=== PATIENT | male | born 2005 | race African-American/Black ===

== ENCOUNTER 2025-02-17 20:45 | Emergency (ER) | payer OTHER, MEDICAID ==
[~2025-02-17] VITALS: Ht 172.7 cm; Wt 59.0 kg
[2025-02-17 20:49] VITALS: O2SAT 100
[2025-02-17] MEDS: ACETAMINOPHEN 500MG TABLET PO ONE (22:12)
[2025-02-17] MEDS: KETOROLAC 15MG/ML VIAL IV ONE (22:12)
[2025-02-18] MEDS ORDERED: LIDO-53 TP (00:09)
[2025-02-18] MEDS ORDERED: IBUP-1523 MT (00:09)
[2025-02-18 00:45] VITALS: BP 125/90; PULSE 96; RESP 16; TEMP 36.9; O2SAT 99
== END 2025-02-18 00:49 | disposition home or self-care (01) ==
LOC: ER 20:45
DX: S46.911A Strain of unspecified muscle, fascia and tendon at shoulder and upper arm level, right arm, initial encounter (principal); S20.211A Contusion of right front wall of thorax, initial encounter; V89.2XXA Person injured in unspecified motor-vehicle accident, traffic, initial encounter; Y93.89 Activity, other specified; Y92.89 Other specified places as the place of occurrence of the external cause; Y99.8 Other external cause status
CPT/HCPCS: 99284; 96374; 71046; 73030; J1885; A4565